=== PATIENT | female | born 1955 | race Caucasian/White ===

== ENCOUNTER 2022-09-05 09:21 | Outpatient (CLI) | payer MEDICARE, SELFPAY | END 2022-09-05 09:22 | disposition home or self-care (01) | LOC: FRMREF 09:22 | PROVIDERS: PCP Family Medicine; Visit Provider Family Medicine | DX: Z00.00 Encounter for general adult medical examination without abnormal findings (principal); E78.5 Hyperlipidemia, unspecified; E03.9 Hypothyroidism, unspecified; D50.9 Iron deficiency anemia, unspecified; F33.8 Other recurrent depressive disorders | CPT/HCPCS: 80053; 80061; 82306; 84443 ==

== ENCOUNTER 2023-01-01 09:00 | Outpatient (RCR) | payer MEDICARE, SELFPAY ==
--- NOTE | 2022-09-11 16:06 | PT.OPE ---
PT [place] Outpatient Eval PT [facility] Outpatient Eval Start: 09/11/22 08:58 Freq: Status: Active Protocol: Document 09/11/22 08:58 HN (Rec: 09/11/22 15:18 HN [id number]) E-signed By Negrita Thompson DPT Physical Therapy Outpatient Evaluation Insurance Information Recert Due Date 12/09/22 Insurance Name Medicare B Medical Diagnosis M79.602 Pain in left arm Treating Diagnosis Cervical radicular pain, median nerve irritation, cervical range of motion and strength Referring MD Monika Ansari, DO Subjective Subjective Patient is a 67 year old female with left arm numbness and tingling with onset approximately 3 months ago with insidious onset. Patient reports symptoms have worsened since initial onset, have become a more constant. Patient reports symptoms are numbness/tingling, reports discomfort but no significant pain. Patient reports increased tightness/tension in upper trapezius/levator scapulae. Patient reports symptoms are variable but can travel to thumb and index finger at worst. 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, lives with , takes care of grandchildren a few days a week in the morning. 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 Preferred Name Kadi Precautions Treatment Precautions/Contraindications No precautions/ contraindications at time of evaluation Weight Bearing Status Full Weight Bearing Therapy Limitations/Systems Review Not Limited Objective Other/Pertinent Objective Shoulder range of motion( degrees): Flexion: 172 R, 169 L Abduction: 168 R, 165 L Cervical range of motion ( degrees): Flexion: 35 with increased tightness reported Extension: 62 degrees Left sidebendin Right sidebendin with increased pain Left rotation: 55 Right rotation: 50 Manual muscle testing: Shoulder flexion: 5/5 L , 5/5 R Shoulder extension: 5/5 L , 5/ 5 R Shoulder abduction: 5/5 L , 5 /5 R Shoulder external rotation: 4+ /5 L , 4+/5 R Shoulder internal rotation: 5/ 5 L , 5/5 R Elbow flexion: 5/5 L , 5 /5 R Elbow extension: 5/5 L , 5/5 R Lower trapezius: 3+/5 L , 3+/5 R Middle trapezius: 3+/5 L , 3+ /5 R Special tests: Spurlings: negative Distraction: positive ULNT1: positive on L, negative on R ULNT2b: negative bilaterally ULNT 3: positive on L, negative on R Joint mobility: Cervical PA mobilizations: hypomobile and painful along C7/T1 Thoracic PA mobilizations: hypermobile and pain along T2- T6 Functional Test Performed & Score Neck disability index: 12% Assessment Assessment/Impression Patient is a 67 year old with complaints of left arm numbness and tingling with insidious onset. Patient demonstrates impaired in cervical range of motion, periscapular and cervical strength, impaired posture, impaired cervical and thoracic joint mobility, increased upper trapezius/levator scapulae tension, positive ULNT1 and ULNT2B, and positive distraction test and numbness /tingling consistent with cervical radiculopathy with median nerve irritation. The impairments impact the patients prolonged positioning including sitting and standing, performance of ADLs and IADLs including performing cooking, work related tasks and recreational activities. Patient will benefit from skilled physical therapy to address the impairments and activity limitations listed above. Patient prognosis is good secondary to relative acuity of symptoms and patient 's motivation. Patient instructed in initial home exercise program with handout provided and verbal and tactile cues provided for form. Patient educated on plan of care, goals, frequency and duration, patient agreeable to initial plan of care. Primary Functional Limitations prolonged positioning including sitting and standing , performance of ADLs and IADLs including performing cooking, work related tasks and recreational activities. Plan of Care Rehabilitation Potential Good Rehabilitation Potential Comments Patient prognosis is good secondary to relative acuity of symptoms and patient's motivation. Physical Therapy Goals Short term goal (5 weeks, 10/16) 1. Patient will demonstrate 4 /5 middle trapezius and lower trapezius or greater in order to improve tolerance with sewing/embroidering. 2. Patient will reports symptom intensity of 5/10 at worst or less in order to demonstrate decreased pain and disability related to symptoms. 3. Patient will score 5% or less on neck disability index in order to demonstrate decreased pain and disability related to symptoms. alf goals (10 weeks, ) 1. Patient will report no numbness/tingling in left upper extremity with doing dishes in order to perform IADLs with no symptoms. 2. Patient will be independent with HEP in order to manage condition and decrease pain and disability. 3. Patient will demonstrate 10 degree improvement in cervical range of motion flexion/extension and bilateral rotation with no increase in numbness and tingling in order to perform IADLs without limitations. 4. Patient will reports symptom intensity of 3/10 at worst or less in order to demonstrate decreased pain and disability related to symptoms. Coordination/Communication With Referral Source Treatment Plan/Direct Interventions Electrical Stimulation,Heat, Ice/Cold/Vasopneumatic,Joint Mobilization,Manual Therapy, Neuromuscular Re-ed,Self-Care/ Home Management,Therapeutic Activities,Therapeutic Exercises,Traction (Mechanical ) Frequency/Duration 2x/week for up to 10 weeks Patient Will Be Discharged From Therapy Completion of LTG(s),Skills Plateau,Independent w/HEP, Independently Progressing Evaluation Billing Untimed Code Treatment Minutes 32 Complexity Low Certification Information Initial Certification Date 09/11/22 Ending Certification Date 11/20/22 Provider Signature Shows Agreement With POC & Medical Necessity Physician Signature & Date Requested Please Sign/Date Here Physician Comment/Change : Physician NPI Number #
--- NOTE | 2022-11-22 12:46 | PT.OPDN ---
PT [place] Outpatient Daily Note PT [facility] Daily Note Start: 09/11/22 08:58 Freq: Status: Active Protocol: Document 11/20/22 11:15 HN (Rec: 11/20/22 16:03 HN [id number]) E-signed By Negrita Thompson DPT PT OP Daily Progress Note Visit Information Note Type Daily Note,Recert/Progress Note Visit Number [id number] Insurance Authorized Visits TBD Physician Authorized Visits Evaluation and treatment Insurance Information Recert Due Date 12/09/22 Insurance Name Medicare B Insurance Information/Comments Medicare/[employer] Medical Diagnosis M79.602 Pain in left arm Treating Diagnosis Cervical radicular pain, median nerve irritation, cervical range of motion and strength Referring MD Monika Ansari, DO Subjective Subjective Patient reports felt good after last session, but did feel heavy for 2-3 days after but improved after that. Patient reports continued decrease in frequency of symptoms, reports symptoms continue to occur with reaching forward and sometimes with overhead. Pain Comments Numbness/tingling symptoms Best: 0/10 Current 0/10 Worst: 4/10 Preferred Name Kadi Precautions Treatment Precautions/Contraindications No precautions/ contraindications at time of evaluation Weight Bearing Status Full Weight Bearing Home Exercise Home Exercise Comments [employer] ADCGGARH Objective Other/Pertinent Objective Cervical range of motion ( degrees): Flexion: 48 Extension: 65 degrees Left sidebendin Right sidebendin Left rotation: 61 Right rotation: 65 Manual muscle testing: Shoulder flexion: 5/5 L , 5/5 R Shoulder extension: 5/5 L , 5/ 5 R Shoulder abduction: 5/5 L , 5 /5 R Shoulder external rotation: 5/ 5 L , 5/5 R Shoulder internal rotation: 5/ 5 L , 5/5 R Elbow flexion: 5/5 L , 5 /5 R Elbow extension: 5/5 L , 5/5 R Lower trapezius: 3+/5 L , 3+/5 R Middle trapezius: 3+/5 L , 3+ /5 R ] Functional Test Performed & Score Neck Disability Index score: 5 / 50 = 10.0 % Patient Instructed in Risks/Benefits Yes Therapeutic Exercise Therapeutic Exercise Minutes (minutes) 39 Therapeutic Exercise: To Restore To decrease left UE numbness Functional Status and tingling, improve strength and decrease pain, patient completed the exercises listed below. Sitting horizontal abduction 2x10 red theraband levator scapulae stretch 1x30 seconds Bent over rows 2x10 3# Scaption 2x10 on L with red theraband with focus on decreased shrug Mechanical Traction Mechanical Traction Treatment Patient Supine,Intermittent Traction Treatment Minutes Timed Code Treatment Minutes 39 Total Treatment Time 39 Billing Units Therapeutic Exercise Units 3 Assessment/Impression Assessment/Impression Patient is a 67 year old with chronic numbness and tingling in L UE. Patient demonstrates improvements in range of motion, strength and decreased frequency and intensity of numbness and tingling. Despite improvement, patient continues to demonstrate deficits in these areas. These impairments impact the patient's tolerance with reaching forward and overhead, completing work related tasks , recreational activities, and ADLs and IADLs. Patient continues to benefit from skilled physical therapy to address the impairments and activity limitations listed above, Trialed session today with no manual therapy to determine in manual is causing heavy feeling. Added sitting horizontal abduction and scaption with resistance with good tolerance, no increase in symptoms. Provided with handout. Plan of Care Physical Therapy Goals Short term goal (5 weeks, 10/16) 1. Patient will demonstrate 4 /5 middle trapezius and lower trapezius or greater in order to improve tolerance with sewing/embroidering. MAKING GOOD PROGRESS 2. Patient will reports symptom intensity of 5/10 at worst or less in order to demonstrate decreased pain and disability related to symptoms. MET 3. Patient will score 5% or less on neck disability index in order to demonstrate decreased pain and disability related to symptoms. 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 Patient will report no numbness/tingling in left upper extremity with doing dishes in order to perform IADLs with no symptoms. MAKING GOOD PROGRESS 2. Patient will be independent with HEP in order to manage condition and decrease pain and disability. MET 3. Patient will demonstrate 10 degree improvement in cervical range of motion flexion/extension and bilateral rotation with no increase in numbness and tingling in order to perform IADLs without limitations. MAKING GOOD PROGRESS 4. Patient will reports symptom intensity of 3/10 at worst or less in order to demonstrate decreased pain and disability related to symptoms. MAKING GOOD PROGRESS Daily Plan of Care Continue per POC Daily Plan of Care Comments Patient to continue 1x/week for 4-6 weeks Recertification Information Initial Certification Date 11/20/22 Recertification Start Date 11/20/22 Recertification Due Date 01/01/23 Reasons to Continue Skilled Therapy Patient has made good progress towards goals and significant decrease in numbness and tingling frequency and intensity. Patient continues to have symptoms with higher level activities which limit performance of ADLs and IADLs including reaching overhead, and reaching forward. Rehabilitation Potential Good Continued Plan of Care and Interventions Cervical range of motion and strengthening, nerve mobilizations, manual therapy as needed. Provider Signature Shows Agreement With POC & Medical Necessity Physician Comment/Change Comment or Changes
== END 2023-01-06 13:40 | disposition home or self-care (01) ==
PROVIDERS: PCP Family Medicine; Visit Provider Family Medicine
DX: M79.602 Pain in left arm (principal); M54.12 Radiculopathy, cervical region; Z74.09 Other reduced mobility; Z51.89 Encounter for other specified aftercare
CPT/HCPCS: 97012; 97110; 97140; 97161

== ENCOUNTER 2024-07-16 09:40 | Outpatient (CLI) | payer MEDICARE, SELFPAY | END 2024-07-16 09:41 | disposition home or self-care (01) | LOC: NFLDREF 07-25 23:41 | PROVIDERS: Visit Provider Physician Assistant Medical | DX: E55.9 Vitamin D deficiency, unspecified (principal); D50.9 Iron deficiency anemia, unspecified; R73.09 Other abnormal glucose; E78.5 Hyperlipidemia, unspecified; E03.9 Hypothyroidism, unspecified | CPT/HCPCS: 80053; 80061; 82306; 84443 ==

== ENCOUNTER 2025-01-24 14:17 | Outpatient (CLI) | payer MEDICARE, SELFPAY ==
--- NOTE | 2025-01-24 14:40 | CRLHL7_ITS ---
For Patients: As a result of the Century Cures Act, medical imaging exams and procedure reports are released immediately into your electronic medical record. You may view this report before your referring provider. If you have questions, please contact your health care provider. INDICATION: BILATERAL SCREENING MAMMOGRAM, ASYMPTOMATIC 69 Y/O FEMALE COMPARISON: 11/28/2022, 10/23/2020, 12/30/2017 TECHNIQUE: Digital mammogram in CC and MLO projections including computer-aided detection (CAD) and tomosynthesis. BREAST COMPOSITION: The breasts are heterogeneously dense, which may obscure small masses. FINDINGS: No suspicious findings. ASSESSMENT: BI-RADS 1 Negative RECOMMENDATION: Annual screening mammogram. A lay language report of this examination will be provided to the patient. Dictated by: Ruben Chowdary MD @ 01/25/2025 12:58:57 (Electronically Signed)
== END 2025-01-24 14:18 | disposition home or self-care (01) ==
LOC: MAMMO 14:18
PROVIDERS: PCP Physician Assistant Medical; Visit Provider Physician Assistant Medical
DX: Z12.31 Encounter for screening mammogram for malignant neoplasm of breast (principal); R92.333 Mammographic heterogeneous density, bilateral breasts
CPT/HCPCS: 77063; 77067